=== PATIENT | female | born 1995 | race Asian ===

== ENCOUNTER → 2024-06-17 07:19 | Outpatient (REF) | payer BC, SELFPAY | LOC: PAVMRI 07:19 | PROVIDERS: ATTENDING PHYSICIAN Specialist; FAMILY PHYSICIAN Family Medicine | DX: R55 Syncope and collapse (principal) | CPT/HCPCS: 70553; A9575 ==

== ENCOUNTER → 2025-04-18 12:56 | Outpatient (REF) | payer BC, SELFPAY | LOC: DHSLP 12:56 | PROVIDERS: ATTENDING PHYSICIAN Internal Medicine Critical Care Medicine; FAMILY PHYSICIAN Family Medicine | DX: G47.19 Other hypersomnia (principal); R06.83 Snoring | CPT/HCPCS: 95810 ==

== ENCOUNTER → 2025-04-19 09:37 | Outpatient (REF) | payer BC, SELFPAY | LOC: DHSLP 09:37 | PROVIDERS: ATTENDING PHYSICIAN Internal Medicine Critical Care Medicine; FAMILY PHYSICIAN Family Medicine | DX: G47.11 Idiopathic hypersomnia with long sleep time (principal) | CPT/HCPCS: 95805 ==

== ENCOUNTER → 2025-06-11 09:13 | Outpatient (REF) | payer BC, SELFPAY | LOC: MRI 3T 09:13 | PROVIDERS: ATTENDING PHYSICIAN Specialist; FAMILY PHYSICIAN Family Medicine | DX: D32.0 Benign neoplasm of cerebral meninges (principal) | CPT/HCPCS: 70553; A9575 ==